=== PATIENT | male | born 1960 | race Caucasian/White ===

== ENCOUNTER 2017-01-24 11:05 | Emergency (ER) | payer OTHER ==
[~2017-01-24] VITALS: Ht 177.8 cm; Wt 110.0 kg
[~2017-01-24 11:05] MED LIST: 3-IN3MIS; LISI20 PO; METF500 PO; NORC10TA2 PO; PERI8.6T PO; PRAV40TA2 PO; RIVA10 PO; VITA20003 PO; Z.0.WALKERFRONT; Z.0.WHEELELR
[2017-01-24 11:07] VITALS: BP 211/100; PULSE 98; RESP 18; TEMP 97.9; O2SAT 97
[2017-01-24 11:32] VITALS: BP 177/110
[2017-01-24] MEDS ORDERED: KETOROLAC TROMETHAMINE 60 MG/2 ML (IM) VIAL IM ONE (12:15)
[2017-01-24] MEDS ORDERED: ULTR50TA5 PO (12:17)
--- NOTE | 2017-01-24 12:17 | PD ---
HPI Chief Complaint: Injury Time Seen by Provider: 12:15 Travel History International Travel<30 days: No Contact w/Intl Traveler<30days: No Traveled to known affect area: No History of Present Illness HPI 56-year-old male presents to the emergency department for evaluation a right bicep pain. Patient states that he was working yesterday and skipping stucco out of a bucket when he felt a pop in his right bicep and developed a large bump. Patient states he has noticed bruising today and the bump has not gone away. States it is painful with flexion of the right upper extremity. Denies any decrease in strength. Denies any other symptoms at this time. PFSH Past Medical History Gastrointestinal Disorders: Yes Hypertension: No Musculoskeletal: No Neurologic: No Respiratory: No Social History Alcohol Use: No Tobacco Use: No Substance Use: No Allergies-Medications (Allergen,Severity, Reaction): Coded Allergies: No Known Allergies (Verified , 04/11/16) Reported Meds & Prescriptions Reported Meds & Active Scripts Active Ultram (Tramadol HCl) 50 Mg Tab 50 Mg PO Q6H PRN 3-in-1 Commode (Misc. Devices) 1 Mis Mis Units Vitamin D (Cholecalciferol) 2,000 Unit Tab 2,000 Unit PO DAILY Pravastatin Sodium 40 Mg Tab 1 Tab PO HS Glucophage 500 mg (Metformin HCl) 500 Mg Tab 500 Mg PO BIDPC Virginie-Colace 8.6-50 mg (Sennosides-Docusate Sodium) 1 Tab Tab 1 Tab PO BID Prinivil 20 mg (Lisinopril) 20 Mg Tab 20 Mg PO DAILY Wheelchair Elevated Leg Rest (Z.0.wheelelr) Device 1 Unit Walker Front Wheel (Z.0.walkerfront) Device 1 Unit Xarelto 10 Mg Tab (Rivaroxaban) 10 Mg Tab 10 Mg PO DAILY [place] 10-325 mg (Hydrocodone-Acetaminophen 10-325 mg) 1 Tab 1 Tab PO Q4H PRN Review of Systems Except as stated in HPI: all other systems reviewed are Neg Physical Exam Narrative GENERAL: Well-nourished male patient, ambulatory no acute distress SKIN: Focused skin assessment warm/dry. Slight ecchymosis on the lateral aspect of the right proximal upper extremity. HEAD: Atraumatic. Normocephalic. EYES: Pupils equal and round. No scleral icterus. No injection or drainage. ENT: No nasal bleeding or discharge. Mucous membranes pink and moist. NECK: Trachea midline. No JVD. CARDIOVASCULAR: Regular rate and rhythm. No murmur appreciated. RESPIRATORY: No accessory muscle use. Clear to auscultation. Breath sounds equal bilaterally. GASTROINTESTINAL: Abdomen soft, non-tender, nondistended. Hepatic and splenic margins not palpable. MUSCULOSKELETAL: No obvious deformities. No clubbing. No cyanosis. No edema. There is able to the distal lateral aspect of the right bicep with ecchymosis lateral to it. Patient has full flexion-extension of the right elbow and full abduction and adduction of the right shoulder. Distal pulses are palpable. Cap refills within normal limits. NEUROLOGICAL: Awake and alert. No obvious cranial nerve deficits. Motor grossly within normal limits. Normal speech. PSYCHIATRIC: Appropriate mood and affect; insight and judgment normal. Data Data Last Documented VS Vital Signs Date Time Temp Pulse Resp B/P Pulse Ox O2 Delivery O2 Flow Rate FiO2 01/24/17 12:36 174/101 01/24/17 11:07 97.9 98 18 97 Orders Ketorolac Inj (Toradol Inj) (01/24/17 12:15) Ice / Cold Pack PRN (01/24/17 12:12) Splint Or Brace Apply/Monitor (01/24/17 12:12) Sling Cradle Arm (01/24/17 ) MDM Medical Decision Making Medical Screen Exam Complete: Yes Emergency Medical Condition: Yes Medical Record Reviewed: Yes Differential Diagnosis Bicep tendon rupture partial versus complete versus tear versus contusion versus muscle strain versus spasm Narrative Course 56-year-old male presents to the emergency department for evaluation of right bicep pain, bulge, and bruising. History and examination is consistent with a bicep tendon rupture. I discussed the patient with my attending physician who agrees the patient needs follow-up with an medical staff specialist. He'll be placed in a sling, treated for pain, and advised to return immediately with any acute worsening of symptoms. No further emergent workup is warranted at this time. Diagnosis Primary Impression: Biceps tendon rupture, proximal Qualified Code: S46.111A - Biceps tendon rupture, proximal, right, initial encounter Referrals: Orthopaedic Surgeon Primary Care Physician Patient Instructions: General Instructions, Repairs of the Biceps and Triceps Tendons (DC) Additional Instructions: Ice to reduce pain and swelling Sling for support Avoid lifting with the right upper extremity until cleared by medical staff specialist Seek medical staff specialist for further evaluation and care plan Return immediately with any acute worsening of symptoms Med/Other Pt SpecificInfo: Prescription(s) given Scripts Tramadol (Ultram)50 Mg Tab50 Mg PO Q6H PRN (PAIN GREATER THAN 6) #15 TAB Ref 0 Prov:Percy Jean-Baptiste MD 01/24/17 Disposition: 01 DISCHARGE HOME Condition: Stable Shadia Reeves Jan 24, 2017 12:17
[2017-01-24 12:28] VITALS: BP 174/101
[2017-01-24 12:36] VITALS: BP 174/101
== END 2017-01-24 12:36 | disposition home or self-care (01) ==
LOC: NEPD 11:05
DX: S46.111A Strain of muscle, fascia and tendon of long head of biceps, right arm, initial encounter (principal); Z87.19 Personal history of other diseases of the digestive system; X58.XXXA Exposure to other specified factors, initial encounter; Y99.0 Civilian activity done for income or pay
CPT/HCPCS: 96372; 99283; J1885

== ENCOUNTER 2017-03-09 09:49 | Inpatient (IN) | payer OTHER ==
[~2017-03-09] VITALS: Ht 177.8 cm; Wt 111.5 kg
[2017-03-09] MEDS ORDERED: MELO-1 PO (10:57)
[2017-03-09] MEDS ORDERED: HYDR-3288 PO (10:57)
[2017-03-09] MEDS ORDERED: METF500T PO (10:57)
[2017-03-09 11:06] VITALS: BP 159/102; PULSE 103; RESP 18; TEMP 98.2; O2SAT 98
[2017-03-09 11:14] LABS: HEMATOCRIT 41.9 % (39.0-51.0); MEAN CELL VOLUME 83.9 FL (80.0-100.0); MEAN CORPUSCULAR HEMOGLOBIN 28.9 PG (27.0-34.0); MEAN CORPUSCULAR HGB CONC 34.4 % (32.0-36.0); PLATELET COUNT 171 TH/MM3 (150-450); RED BLOOD COUNT 4.99 MIL/MM3 (4.50-5.90); RED CELL DISTRIBUTION WIDTH 12.5 % (11.6-17.2); REVIEW FLAG FINAL; WHITE BLOOD COUNT 9.7 TH/MM3 (4.0-11.0)
[2017-03-09] MEDS ORDERED: ceFAZolin INJ 1,000 MG VIAL ONE ×2 (11:19→14:19)
[2017-03-09] MEDS ORDERED: GENTAMICIN SULFATE 80 MG/2 ML VIAL ONE (11:19)
[2017-03-09 11:25] LABS: BLOOD, URINE NEG (NEG); COMMENT (UR) CULT NOT INDICATED; CULTURE IF INDICATED CULT NOT INDICATED; GLUCOSE,URINE 1000 mg/dL (NEG); KETONE, URINE TRACE mg/dL (NEG); MUCUS URINE FEW /lpf (OCC); NITRITE,URINE NEG (NEG); SQUAMOUS EPITHELIAL CELL URINE <1 /hpf (0-5); URINE COLOR YELLOW (YELLW/STRAW)
[2017-03-09 11:46] LABS: BICARBONATE 23.3 MEQ/L (21.0-32.0)
[2017-03-09] MEDS ORDERED: ONDANSETRON HCL 4 MG/2 ML VIAL IV PUSH ONE (12:00)
[2017-03-09] MEDS ORDERED: PROPOFOL 200 MG/20 ML AMP IV ONE (12:00)
[2017-03-09] MEDS ORDERED: PHENYLEPH/NS 1000 MCG/10 ML SYR IV ONE (12:00)
[2017-03-09] MEDS ORDERED: LACTATED RINGER'S 1000 ML INJ 1,000 ML IV ONE (12:00)
[2017-03-09] MEDS ORDERED: SODIUM CHLOR 0.9% 250 ML INJ 250 ML IV ONE (12:00)
[2017-03-09] MEDS ORDERED: SODIUM CHLORID 0.9% 500 ML INJ 500 ML IV ONE (12:00)
[2017-03-09] MEDS ORDERED: GENTAMICIN SULFATE 80 MG/2 ML VIAL IRRIGATION ONE (12:26)
[2017-03-09] MEDS ORDERED: ACETAMINOPHEN/HYDROcodone 325 MG/7.5 MG TAB PO PRN ×2 (12:30→15:00)
[2017-03-09] MEDS: LACTATED RINGER'S 1000 ML INJ 1,000 ML IV SCH ×2 (12:38→21:36)
--- NOTE | 2017-03-09 12:41 | HHI.PR ---
Objective Objective Results - Vital Signs Date Time Temp Pulse Resp B/P Pulse Ox O2 Delivery O2 Flow Rate FiO2 03/09/17 11:06 98.2 103 18 159/102 98 Result Diagram: 03/09/17 1106 03/09/17 1106 Other Results Laboratory Tests Test 03/09/17 03/09/17 11:06 11:10 White Blood Count 9.7 Red Blood Count 4.99 Hemoglobin 14.4 Hematocrit 41.9 Mean Corpuscular Volume 83.9 Mean Corpuscular Hemoglobin 28.9 Mean Corpuscular Hemoglobin 34.4 Concent Red Cell Distribution Width 12.5 Platelet Count 171 Mean Platelet Volume 7.8 Sodium Level 134 Potassium Level 4.0 Chloride Level 100 Carbon Dioxide Level 23.3 Anion Gap 11 Blood Urea Nitrogen 16 Creatinine 1.04 Estimat Glomerular Filtration 74 Rate Random Glucose 272 Calcium Level 8.6 Urine Color YELLOW Urine Turbidity CLEAR Urine pH 5.0 Urine Specific [place] 1.044 Urine Protein 30 Urine Glucose (UA) 1000 Urine Ketones TRACE Urine Occult Blood NEG Urine Nitrite NEG Urine Bilirubin NEG Urine Urobilinogen LESS THAN 2.0 Urine Leukocyte Esterase NEG Urine RBC LESS THAN 1 Urine WBC 1 Urine Squamous Epithelial <1 Cells Urine Mucus FEW Microscopic Urinalysis Comment CULT NOT INDICATED Date/Time Procedure Status Source Growth 03/09/17 10:36 Gram Stain Received Wound Shoulder Pending 03/09/17 10:36 Wound Culture Received Wound Shoulder Pending Physical Exam Physical Exam PHYSICAL EXAMINATION GENERAL: This is a well-developed, well-nourished male who appears to be in no acute distress. He is alert and awake, []. HEAD: Normocephalic without any lesion or mass noted. Facial features appear symmetric. EYES: [place], Normal eye movement, [] Icterus. [] Conj congestion. OROPHARYNGEAL: Oropharynx without erythema or edema. MOUTH/THROAT: Tongue midline []. Buccal mucosa is moist []. NECK: Supple. No nuchal rigidity or lymphadenopathy. Trachea midline without deviation. Thyroid not palpable, no bruits appreciated. CARDIAC: Regular rhythm, regular rate, S1 and S2 are heard. Murmur []; no gallops or rubs. LUNGS: Clear to auscultation bilaterally. [] wheeze, [] rhonchi or [] rale. No use of accessory muscles on inspiration or expiration. ABDOMEN: Soft, nontender, no organomegaly or masses. Bowel sounds are heard in all four quadrants. No rebound. No guarding. EXTREMITIES: [] edema. Pulses equal bilateral. [] cyanosis. NEUROLOGICAL: Patient mood and affect appropriate. Cranial nerves II through XII grossly intact. Muscle strength 5/5 in the upper and lower extremities bilaterally. Deep tendon reflexes are 2+ in the upper and lower extremities bilaterally. SKIN:Warm and moist PSYCH: Mood and affect appropriate A/P Assessment and Plan patient seen and examined Please refer to full consult for more details Right shoulder infection h/o DM non compliance with medications plan for I & D today Monitor cultures currently not on any antibiotics check HBA1C accuchecks ISS pain control discussed with patient and at bedside discussed with nursign staff discussed with Ilana Vera MD Mar 09, 2017 12:41
[2017-03-09] MEDS ORDERED: DEXTROSE 50% IN WATER 50 ML VIAL(D50) IV PRN (12:45)
[2017-03-09] MEDS ORDERED: GLUCAGON 1 MG/ML VIAL OTHER PRN (12:45)
[2017-03-09] MEDS ORDERED: METOCLOPRAMIDE HCL 10 MG/2 ML VIAL ONE (13:30)
[2017-03-09] MEDS ORDERED: FAMOTIDINE 20 MG/2 ML VIAL ONE ×2 (13:30→13:31)
[2017-03-09] MEDS ORDERED: SUGAMMADEX SODIUM 200 MG/2 ML VIAL IV PUSH ONE ×2 (13:38)
[2017-03-09] MEDS ORDERED: ACETAMINOPHEN 1000 MG/100 ML VIAL IV ONE (14:09)
[2017-03-09] MEDS ORDERED: VANCOMYCIN HCL 1000 MG VIAL ONE (14:19)
[2017-03-09] MEDS ORDERED: fentaNYL CITRATE 250 MCG/5 ML AMP ONE (14:51)
[2017-03-09] MEDS ORDERED: ZOLPIDEM TARTRATE 5 MG TAB PO PRN (15:00)
[2017-03-09] MEDS ORDERED: SODIUM CHLORIDE 0.9% FLUSH 5 ML FLUSH IVF PRN (15:00)
[2017-03-09] MEDS ORDERED: Post-op Orders (for Pharmacy) MISC XX ONE (15:00)
[2017-03-09] MEDS: SODIUM CHLORIDE 0.9% FLUSH 5 ML FLUSH IVF SCH ×2 (15:00→21:00)
[2017-03-09] MEDS ORDERED: ALUMINUM/MAGNESIUM/SIMETH 30 ML CUP PO PRN (15:00)
[2017-03-09] MEDS ORDERED: MORPHINE SULFATE 8 MG/ML INJ IM PRN (15:00)
--- NOTE | 2017-03-09 15:10 | HHI.PR ---
Immediate Post Op Note Procedure Date: Mar 09, 2017 Pre Op Diagnosis: R Shoulder Abscess Post Op Diagnosis: Same Surgeon: Cholo Thorpe MD Environmental Sampling Technician(s): Staff Procedure: R Shoulder abscess I+D Complications: None Specimen(s) removed: GS.A+A C/S; Fungal Smear +culture Estimated blood loss: 75 cc Anesthesia: General Drains: Hemovac Patient to: PACU Patient Condition: Good Implant/Devices: SEE IMPLANT LOG (if applicable) Date/Time of Procedure: SEE SURGICAL CARE RECORD Cholo Thorpe MD Mar 09, 2017 15:10
[2017-03-09] MEDS ORDERED: DO NOT ADM ANY ANTICOAGULANT DRUGS PRN (15:22)
[2017-03-09] MEDS ORDERED: *LABETALOL HCL 100 MG/20 ML VIAL PERIprocedural Use ONLY ONE (15:34)
[2017-03-09 15:53] LABS: HEMOGLOBIN A1a 0.8 %; HEMOGLOBIN Ao 78.5 %; HEMOGLOBIN F 1.4 %; HEMOGLOBIN LA1C 3.3 %
[2017-03-09] MEDS: INSULIN NovoLIN REGULAR SUPPLEMENTAL SCALE SQ SCH ×2 (16:10→21:38)
[2017-03-09] MEDS: ACETAMINOPHEN/HYDROcodone 325 MG/7.5 MG TAB PO PRN ×2 (17:06→21:39)
[2017-03-09 17:26] VITALS: BP 170/102; PULSE 94; RESP 20; TEMP 98.4; O2SAT 98
[2017-03-09 17:45] VITALS: O2SAT 98
[2017-03-09] MEDS: metFORMIN HCL 500 MG TAB PO SCH (17:59)
[2017-03-09] MEDS ORDERED: LABETALOL HCL 100 MG/20 ML VIAL IV PUSH PRN (19:00)
[2017-03-09 20:00] VITALS: BP 154/92; PULSE 95; RESP 17; TEMP 98.7; O2SAT 98
--- NOTE | 2017-03-09 20:34 | MB ---
cc: RUDY ANDERSON DATE OF CONSULTATION 03/09/17 DATE OF 1960 REASON FOR CONSULTATION Medical management. HISTORY OF PRESENT ILLNESS This is a pleasant 56-year-old white male who sustained a work injury, according to the record, on 01/23/2017. 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 The patient had surgical procedure for acromioplasty, excision of coracoid acromial ligament and resection of the acromioclavicular joint. The patient had an uneventful surgical process, went home, states that he did everything he possibly related to take care of the surgery but noted increased redness and swelling in his postoperative phase at home. He also states that the incision started opening at the top and began having drainage along with erythema and swelling. The patient was placed on p.o. antibiotics, but as soon as the antibiotics were complete he noted increased pain, drainage and swelling in the joint. He was seen in office today of Dr. Thorpe and was sent over to the hospital for an incision and drainage of the right shoulder abscess. The patient is currently in his room postop eating some supper. He is alert and oriented and a fairly good historian. His is present. The patient is responding effectively to pain management. PAST MEDICAL HISTORY 1. Gout 2. Recent to medications for hypertension 3. Diabetes mellitus type 2. PAST SURGICAL HISTORY Right knee scope in the distant past. ALLERGIES None known MEDICATIONS Reconciled 1. Meloxicam 2. [place] 3. Metformin SOCIAL HISTORY The patient is , lives with his . Quit smoking approximately 30 years ago. Does drink a social beer almost daily. Denies any illicit drug use. REVIEW OF SYSTEMS A 12-point review was obtained. Positives noted was the patient is status post right shoulder incision and drainage. His dressing is bulky, clean, dry and intact and he does have a drain that is draining clear, red, serous fluid. He recently has had swelling, has been on p.o. antibiotics, had drainage from the incision site. Otherwise, his systems are negative unremarkable. He has had a bowel movement 24 hours ago. PHYSICAL EXAMINATION VITAL SIGNS: Temperature is 98.8, pulse 90, respirations 14-20, blood pressure 164/94 and 170/102, O2 at 2 liters per nasal cannula O2 sat 98. GENERAL: This is a well-nourished white male who looks to be his stated age resting in the bed, alert, oriented and a fairly good historian. His is currently by his side and is supported of his care. SKIN: [place], warm and dry. HEENT: Atraumatic, normocephalic. PERRLA at two. Mucous membranes are moist and pink. NECK: Supple. CARDIOVASCULAR: S1-S2, rhythm is regular. He has a soft systolic murmur at the left sternal border grade 2/6. He has no edema and his pulses are intact. RESPIRATORY: Essentially clear anteriorly and posteriorly with no wheezes, rales or rhonchi. ABDOMEN: Round, soft, nontender, nondistended. Active bowel sounds. MUSCULOSKELETAL: He is moving his lower extremities with purpose. His left arm has normal strength. He is postop with his right shoulder and mobility is purposefully limited at this time. NEUROLOGIC: He is alert, oriented, tongue is midline. PSYCHIATRIC: Mood and affect are appropriate. LABORATORY DATA WBC count 7 9.7, hemoglobin 14.4, hematocrit 41.9, platelet count 171. Chemistry - sodium is 134, potassium four, chloride 100, carbon dioxide 23.3. Anion gap 11, BUN 16, creatinine 1.04, random glucose 272, hemoglobin A1c 9.2, calcium 8.6. Urine is yellow clear, pH is 5. Specific gravity 1.044, protein 30, glucose is 1000, trace ketones, negative for occult blood, nitrates, bilirubin and leukocyte esterase. IMAGING STUDIES None. ASSESSMENT AND PLAN 1. Recent right shoulder acromioplasty and resection of the acromioclavicular joint. The patient is now status post I&D of the right shoulder. 2. Diabetes type 2 uncontrolled recent diagnosis 3. Hypertension, uncontrolled. recent diagnosis 4. ETOH dependence 5. Hyponatremia, mild. PLAN Admit. We will monitor his O2 level, his fever, any abnormal blood pressures. He currently has borderline hypertension. We will order p.r.n. medications to control with a systolic less than 180 and a diastolic less than 100. He has had infectious disease consulted for antibiotic therapy and their expert opinion. Accu-Cheks are a.c. and at bedtime with sliding scale. The patient had his medications reconciled including bowel regimen, IV fluids for gentle hydration. He is on IV antibiotics cephazolin q6. We will use IV labetalol to stabilize pressure as mentioned. Vital signs will be Q4. His postop care and pain management will be per ortho. His diet is 2200 calorie ADA diet. Thank you very much for the consultation. We will follow. Ilana Anderson MD Dictated by RASHAWN Blankenship/ /6:47 PM /8:07 PM
--- NOTE | 2017-03-09 22:52 | MP ---
cc: PHILIPP BRIZUELA MD DATE OF SURGERY 03/09/17 PREOPERATIVE DIAGNOSIS Right shoulder abscess. POSTOPERATIVE DIAGNOSIS Right shoulder abscess PROCEDURE Right shoulder incision and drainage of abscess, irrigation and debridement. SURGEON Keon Brizuela MD ASSESSMENT Staff COMPLICATIONS None ANESTHESIA General SPECIMEN Three separate specimens were taken. They were sent for Gram stain aerobic, anaerobic cultures and sensitivity; fungal smear and cultures. DRAINS One. CONDITION Stable PLAN OF ACTIVITY Per orders. PROCEDURE IN DETAIL The patient brought into the operating room, had satisfactory general endotracheal anesthesia by Dr. Bassem Kincaid, Department of Anesthesia. The right shoulder, thorax, upper extremity was prepped and draped in usual sterile manner. Elliptical incision was made over the anterior wound. Purulent material was evacuated from the shoulder. The patient's repair with #2 Tycron suture was removed as was the repair of the deltoid to the acromion anteriorly. This was in an attempt to eradicate the infection with that suture material. All nonviable tissue was sharply removed. The shoulder was then irrigated with water pick irrigation system with 6000 mL of sterile saline antibiotic solution. Prior to the irrigation and debridement, three separate cultures were taken. These were sent for Gram stain, aerobic, anaerobic cultures and sensitivity, fungal smear and culture. The wound was closed over a 1/8" Hemovac drain. It was closed in layers using #1 PDS sutures. Skin was approximated with a #1 Prolene and 2-0 nylon. Sterile dressings were applied. The patient tolerated the procedure well and arrived in recovery room in stable and satisfactory condition. MD CODY Sargent/ /3:15 PM /10:35 PM
[2017-03-10] VITALS (7 sets, daily range): BP systolic 131–173; BP diastolic 83–92; PULSE 82–97; RESP 17–19; TEMP 98–99; O2SAT 92–99
[2017-03-10] MEDS: INSULIN NovoLIN REGULAR SUPPLEMENTAL SCALE SQ SCH ×2 (05:30→11:00)
[2017-03-10] MEDS: ACETAMINOPHEN/HYDROcodone 325 MG/7.5 MG TAB PO PRN ×5 (05:43→23:05)
--- NOTE | 2017-03-10 07:09 | PD.ORT.PN ---
Subjective Subjective Remarks Christopher is resting comfortably. He does complain of right shoulder pain with motion. He denies fevers or chills. Objective Vitals Vital Signs Date Time Temp Pulse Resp B/P Pulse Ox O2 Delivery O2 Flow Rate FiO2 03/10/17 04:00 98.7 92 17 163/92 97 03/10/17 00:00 98.0 82 17 131/86 98 03/09/17 20:00 98.7 95 17 154/92 98 03/09/17 18:00 18 03/09/17 17:45 98 Nasal Cannula 2.00 03/09/17 17:26 98.4 94 20 170/102 98 03/09/17 16:15 98.8 90 14 164/94 97 Nasal Cannula 2 03/09/17 16:00 94 14 165/95 98 Nasal Cannula 2.5 03/09/17 15:45 93 12 179/96 97 Nasal Cannula 2.5 03/09/17 15:30 99 14 182/90 96 Nasal Cannula 2.5 03/09/17 15:15 104 14 157/88 89 Nasal Cannula 2.5 03/09/17 15:09 99.2 109 14 158/88 90 Room Air 03/09/17 11:06 98.2 103 18 159/102 98 I/O 03/09/17 03/09/17 03/09/17 03/10/17 03/10/17 03/10/17 07:00 15:00 23:00 07:00 15:00 23:00 Intake Total 1340 ml 240 ml Output Total 1075 ml 1000 ml Balance 265 ml -760 ml Intake Oral 240 ml 240 ml Other 1100 ml Output Urine Total 1000 ml 1000 ml Estimated Blood Loss 75 ml Result Diagram: 03/09/17 1106 03/09/17 1106 Objective Remarks Patient is awake and alert. Examination of right shoulder reveals clean dry dressing intact. No pain with elbow, wrist, or finger motion. Drain is in place. Drain has some serosanguineous drainage present Assessment & Plan Assessment and Plan Postoperative day #1 status post right shoulder irrigation and debridement Cultures no growth today Continue drain Presley Nelson MD Mar 10, 2017 07:09
[2017-03-10] MEDS: LACTATED RINGER'S 1000 ML INJ 1,000 ML IV SCH ×2 (08:37→17:14)
[2017-03-10] MEDS: SODIUM CHLORIDE 0.9% FLUSH 5 ML FLUSH IVF SCH ×2 (08:37→21:00)
[2017-03-10] MEDS: metFORMIN HCL 500 MG TAB PO SCH ×2 (08:37→17:13)
--- NOTE | 2017-03-10 10:11 | HHI.PR ---
Subjective Remarks Awake alert in room Patient's resting in bed but plans to get up in chair when IV pole available Right shoulder dressing clean dry and intact Afebrile (Lise Mcneil) Objective Objective Results - Vital Signs Date Time Temp Pulse Resp B/P Pulse Ox O2 Delivery O2 Flow Rate FiO2 03/10/17 08:00 98.6 92 18 173/86 96 03/10/17 04:00 98.7 92 17 163/92 97 03/10/17 00:00 98.0 82 17 131/86 98 03/09/17 20:00 98.7 95 17 154/92 98 03/09/17 18:00 18 03/09/17 17:45 98 Nasal Cannula 2.00 03/09/17 17:26 98.4 94 20 170/102 98 03/09/17 16:15 98.8 90 14 164/94 97 Nasal Cannula 2 03/09/17 16:00 94 14 165/95 98 Nasal Cannula 2.5 03/09/17 15:45 93 12 179/96 97 Nasal Cannula 2.5 03/09/17 15:30 99 14 182/90 96 Nasal Cannula 2.5 03/09/17 15:15 104 14 157/88 89 Nasal Cannula 2.5 03/09/17 15:09 99.2 109 14 158/88 90 Room Air 03/09/17 11:06 98.2 103 18 159/102 98 I/O 03/09/17 03/09/17 03/09/17 03/10/17 03/10/17 03/10/17 07:00 15:00 23:00 07:00 15:00 23:00 Intake Total 1340 ml 240 ml Output Total 1075 ml 1000 ml Balance 265 ml -760 ml Intake Oral 240 ml 240 ml Other 1100 ml Output Urine Total 1000 ml 1000 ml Estimated Blood Loss 75 ml (Lise Mcneil) Result Diagram: 03/09/17 1106 03/09/17 1106 ROS General: Weakness (generalized patient is day 1 postop right shoulder surgery) , Other (10 point ROS done positives noted) GI: BM (laxative ordered, bowel regimen discussed patient's on day 2) Neuro/MS: Other (right shoulder pain postop day 1) (Lise Mcneil) Physical Exam Physical Exam PHYSICAL EXAMINATION GENERAL: This is a mildly obese male who appears to be in no acute distress. He is alert and awake, no anxiety noted HEAD: Normocephalic atraumatic OROPHARYNGEAL: Oropharynx clear. NECK: Supple. Trachea midline without deviation. CARDIAC: Regular rhythm, regular rate, S1 and S2 are heard. LUNGS: Clear to auscultation bilaterally. ABDOMEN: Soft,taut, nontender, Bowel sounds active EXTREMITIES: Mild right shoulder edema. Pulse intact NEUROLOGICAL: Patient mood and affect appropriate. SKIN:Warm and moist (Lise Mcneil) A/P Assessment and Plan 1. Recent right shoulder acromioplasty and resection of the acromioclavicular joint. The patient is now status post I&D of the right shoulder. 2. Diabetes type 2 uncontrolled recent diagnosis 3. Hypertension, uncontrolled. recent diagnosis 4. ETOH dependence 5. Hyponatremia, mild. PLAN Vital signs reviewed, normal trends, monitor blood pressure for any when necessary needs. Patient's afebrile Labs reviewed, will recheck BMP and CBC in the morning Status post right shoulder acromioplasty, pain management and activity per Ortho , draining to stay in today Patient is getting up in chair this a.m. Bowel regimen, milk of magnesia ordered and patient has stool softeners daily Pain management, postop care per orthopedic Diabetes type 2, Accu-Cheks before meals and at bedtime with sliding scale, taking by mouth meds Hypertension, by mouth meds medical management, IV labetalol if needed for systolic 180 or greater, diastolic 100 or greater EtOH, history, no acute anxiety or restlessness noted, monitor for any acute needs Discussed with patient Discussed with nurse Discussed with Dr. carroll, seen on his behalf Discharge planning possibly Sunday to reevaluate per his orthopedic surgeon ( Lise Mcneil) Assessment and Plan pt is seen & examined d.w PT & sig other at bedside wound c.s +ve MRSA IV Vanco/ID consult analgesic wound care diabetic diet inc dose Metformin change insulin SSI to medium dose add Lisinopril for BP d/w lise martinez w above will f/u (Tracey Carroll MD) Lise Mcneil Mar 10, 2017 10:11 Tracey Carroll MD Mar 10, 2017 12:43
[2017-03-10] MEDS ORDERED: Vancomycin Consult Pharmacy 1 EA OTHER SCH (10:45)
[2017-03-10] MEDS ORDERED: GLUCAGON 1 MG/ML VIAL OTHER PRN (12:15)
[2017-03-10] MEDS ORDERED: DEXTROSE 50% IN WATER 50 ML VIAL(D50) IV PRN (12:15)
[2017-03-10] MEDS: VANCOMYCIN 1,500 MG/NS 500 ML IV SCH ×2 (12:23)
[2017-03-10] MEDS: MAGNESIUM HYDROXIDE SUSP 30 ML CUP PO PRN (14:04)
[2017-03-10] MEDS: cloNIDine HCL 0.2 MG TAB PO SCH ×2 (14:04→21:52)
--- NOTE | 2017-03-10 15:34 | MB ---
cc: MAHAMED SINGH MD DATE OF CONSULTATION 03/10/[address] Cholo Thorpe REASON FOR CONSULTATION Infection of the right shoulder. HISTORY OF PRESENT ILLNESS This is a 56-year-old white male who underwent surgery on his right shoulder on 02/08/17 because of tendon rupture. The patient sustained an injury while working at the end of December and he felt a pop in his right bicep and subsequently developed a large bump and severe pain. The patient had the surgery on 02/08. Approximately three weeks later he developed swelling and some redness and he was put on oral antibiotics for 10 days which he completed 5 days ago. The patient developed severe pain and started draining from the wound 3 days ago and therefore he has made an appointment to follow up with orthopedic physician and subsequently was admitted for further surgery. He was doing rehab therapy after surgery. He states that there was fair amount of drainage that appeared purulent at the surgical site of the right shoulder. He states that he had mild fever and at one point the pain was very bad in the right shoulder and was radiating up the right side of his neck but only lasted for a short time at the neck region. He has not had that transfer of pain of the right neck since. He did not notice any redness at the right neck region at all. The patient underwent surgery on March 09 consisting of irrigation and debridement of the right shoulder and drainage of abscess. Culture was taken and the results are not yet available. The patient is afebrile. He was noted to have elevation in the blood glucose and also has hypertension as well with elevation in his blood pressure. Currently, he is awake and alert and is in no acute distress. He denies nausea or vomiting and has no other significant symptoms except for pain in the right shoulder. He has a drainage catheter exiting the right shoulder wound which has serous drainage. PAST MEDICAL HISTORY Hypertension. The patient newly diagnosed with diabetes. ALLERGIES NO KNOWN DRUG ALLERGIES. MEDICATIONS 1. Glucophage. 2. Sliding scale insulin. 3. [place] 7.5 p.r.n. SOCIAL HISTORY The patient is . 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 No tobacco use. No alcohol use. No illicit drugs. FAMILY HISTORY The patient's mother had diabetes. REVIEW OF SYSTEMS GENERAL: No fever. The patient reported slight chills. HEAD/EARS/EYES/NOSE/THROAT: No visual blurring or diplopia. No difficulty swallowing or soreness of the throat. No neck pain or neck swelling. CARDIOVASCULAR: No palpitation or chest pain. RESPIRATORY: No cough or shortness of breath. GASTROINTESTINAL: No nausea, vomiting, abdominal pain or diarrhea. GENITOURINARY: No urgency, frequency or dysuria. HEMATOPOIETIC: No easy bruising or bleeding. ENDOCRINE: No polyuria, polydipsia. MUSCULOSKELETAL: No joint aches. The patient has pain in the right shoulder. NEUROLOGIC: No problems with coordination or dizziness. INTEGUMENTARY: No skin rash or itching. PSYCHIATRIC: No problems with mood disorder or depression. PHYSICAL EXAMINATION GENERAL: This is a well-developed obese male in no acute distress. He is awake and alert and oriented. VITAL SIGNS: Include temperature of 98.6, BP 173/86, heart rate 92, respirations 18. HEENT: Head is atraumatic. Extraocular movements grossly intact, pupils reactive to light. No icterus. Oropharynx no visible lesions. No thrush. NECK: Supple without adenopathy. LUNGS: Clear to auscultation. HEART: Regular rate and rhythm. No murmurs. No rubs. No gallops. ABDOMEN: Bowel sounds present, soft, nontender. RECTAL: Not performed. EXTREMITIES: The right shoulder has a drainage catheter exiting the wound bed postop. There is serous drainage in the catheter. The rest of the extremities have no clubbing, cyanosis or edema. SKIN: No rash. NEUROLOGIC: No gross focal findings. PSYCHIATRIC: The patient is calm and cooperative. LABORATORY DATA WBC 9.7, platelet count 171, creatinine 1.04, BUN 16, sodium 134. Wound culture pending. IMPRESSION 1. Wound infection postop. Patient status post drainage of abscess at the right shoulder. 2. Patient status post repair of right shoulder ruptured tendon, recent. RECOMMENDATIONS 1. Monitor wound culture. 2. Treat with intravenous vancomycin while awaiting for the results of the culture. The patient failed to respond to oral outpatient antibiotic and may very well have resistant staph bacteria. 3. Monitor clinical response. Thank you for this consultation. The patient's progress will be monitored and further recommendations will be given and adjustment to antibiotics will be made on followup. Mahamed Singh MD FD/SILVER /10:30 AM /3:10 PM MTDMary
[2017-03-10] MEDS: INSULIN ASPART SUPPLEMENTAL SCALE SQ SCH ×2 (17:15→21:56)
[2017-03-10] MEDS: DOCUSATE SODIUM 100 MG CAP PO SCH (21:51)
[2017-03-11] VITALS: BP 140/83; PULSE 89; RESP 18; TEMP 99.7; O2SAT 95
[2017-03-11] MEDS: VANCOMYCIN 1,500 MG/NS 500 ML IV SCH ×4 (00:17→12:24)
[2017-03-11] MEDS: LACTATED RINGER'S 1000 ML INJ 1,000 ML IV SCH ×2 (04:00→12:24)
[2017-03-11] MEDS: cloNIDine HCL 0.2 MG TAB PO SCH ×3 (04:39→22:00)
[2017-03-11] MEDS: ACETAMINOPHEN/HYDROcodone 325 MG/7.5 MG TAB PO PRN ×5 (04:39→21:11)
[2017-03-11 05:16] LABS: HEMATOCRIT 37.3 % (39.0-51.0); MEAN CELL VOLUME 83.8 FL (80.0-100.0); MEAN CORPUSCULAR HEMOGLOBIN 29.4 PG (27.0-34.0); MEAN CORPUSCULAR HGB CONC 35.1 % (32.0-36.0); PLATELET COUNT 220 TH/MM3 (150-450); RED BLOOD COUNT 4.45 MIL/MM3 (4.50-5.90); RED CELL DISTRIBUTION WIDTH 12.4 % (11.6-17.2); REVIEW FLAG FINAL; WHITE BLOOD COUNT 9.9 TH/MM3 (4.0-11.0)
[2017-03-11 05:38] LABS: BICARBONATE 24.8 MEQ/L (21.0-32.0)
[2017-03-11] MEDS: INSULIN ASPART SUPPLEMENTAL SCALE SQ SCH ×4 (06:13→21:14)
--- NOTE | 2017-03-11 07:36 | PD.ORT.PN ---
Subjective Subjective Remarks POD 2 s/p I&D right shoulder doing well. states has had pain overnight. worked with therapy yesterday. reports that dressing had to be changes twice due to drainage. Objective Vitals Vital Signs Date Time Temp Pulse Resp B/P Pulse Ox O2 Delivery O2 Flow Rate FiO2 03/11/17 00:00 99.7 89 18 140/83 95 03/10/17 20:00 99.0 97 18 147/90 92 03/10/17 16:00 98.4 90 19 135/83 96 03/10/17 12:00 98.4 95 19 151/87 96 03/10/17 10:37 99 21 03/10/17 08:00 98.6 92 18 173/86 96 I/O 03/10/17 03/10/17 03/10/17 03/11/17 03/11/17 03/11/17 07:00 15:00 23:00 07:00 15:00 23:00 Intake Total 240 ml 1505 ml 360 ml 500 ml Output Total 1000 ml 400 ml 400 ml Balance -760 ml 1105 ml -40 ml 500 ml Intake Oral 240 ml 720 ml 360 ml IV Total 785 ml 500 ml Output Urine Total 1000 ml 400 ml 400 ml # Bowel Movements 0 0 Result Diagram: 03/11/17 0428 03/11/17 0428 Objective Remarks Patient is awake and alert. Examination of right shoulder reveals clean dry dressing intact. No pain with elbow, wrist, or finger motion. Drain is in place. Drain has some serosanguineous drainage present Assessment & Plan Assessment and Plan 1) POD #2 s/p right shoulder irrigation and debridement Cultures - MRSA Continue drain continue PT plan for DC of drain possibly tomorrow. Dr Emmanuel back tomorrow to make assessment Gilbert Alcocer Mar 11, 2017 07:36
[2017-03-11 08:00] VITALS: BP 149/92; PULSE 86; RESP 20; TEMP 98.7; O2SAT 96
[2017-03-11] MEDS: DOCUSATE SODIUM 100 MG CAP PO SCH ×2 (08:54→21:10)
[2017-03-11] MEDS: SODIUM CHLORIDE 0.9% FLUSH 5 ML FLUSH IVF SCH ×2 (08:54→21:00)
[2017-03-11] MEDS: metFORMIN HCL 500 MG TAB PO SCH ×2 (08:55→17:01)
[2017-03-11] MEDS ORDERED: LISINOPRIL 5 MG TAB PO SCH (09:00)
[2017-03-11] MEDS: MAGNESIUM HYDROXIDE SUSP 30 ML CUP PO PRN (09:08)
--- NOTE | 2017-03-11 10:13 | EKG ---
Date Performed: 03/09/2017 Time Performed: 12:10:54 PTAGE: 56 years EKG: Sinus rhythm POSSIBLE LEFT ATRIAL ENLARGEMENT BORDERLINE ECG PREVIOUS TRACING : 04/11/2016 15.59 DOCTOR: Joshua Lynn Interpretating Date/Time 03/11/2017 09:55:31
[2017-03-11 12:00] VITALS: BP 153/100; PULSE 88; RESP 19; TEMP 98.1; O2SAT 96
[2017-03-11] MEDS: ONDANSETRON HCL 4 MG/2 ML VIAL IVP PRN (14:25)
--- NOTE | 2017-03-11 14:39 | HHI.PR ---
Subjective History of Present Illness c/o nausea , new BP med is making me sick shoulder pain is in control/pain meds are helping No N/V No fever or chills No CP or SOB appetite is ok No BM yet offers no other c/o is at bedside Vitals/Results Intake & Output 03/10/17 03/10/17 03/11/17 15:00 23:00 07:00 Intake Total 1505 ml 360 ml 500 ml Output Total 400 ml 400 ml Balance 1105 ml -40 ml 500 ml Intake Oral 720 ml 360 ml IV Total 785 ml 500 ml Output Urine Total 400 ml 400 ml # Bowel Movements 0 0 Vital Signs Vital Signs Date Time Temp Pulse Resp B/P Pulse Ox O2 Delivery O2 Flow Rate FiO2 03/11/17 12:00 98.1 88 19 153/100 96 03/11/17 08:00 98.7 86 20 149/92 96 03/11/17 00:00 99.7 89 18 140/83 95 03/10/17 20:00 99.0 97 18 147/90 92 03/10/17 16:00 98.4 90 19 135/83 96 CBC/BMP: 03/11/17 0428 03/11/17 0428 Lab Results Laboratory Tests Test 03/11/17 04:28 White Blood Count 9.9 TH/MM3 Red Blood Count 4.45 MIL/MM3 Hemoglobin 13.1 GM/DL Hematocrit 37.3 % Mean Corpuscular Volume 83.8 FL Mean Corpuscular Hemoglobin 29.4 PG Mean Corpuscular Hemoglobin 35.1 % Concent Red Cell Distribution Width 12.4 % Platelet Count 220 TH/MM3 Mean Platelet Volume 8.2 FL Sodium Level 134 MEQ/L Potassium Level 4.0 MEQ/L Chloride Level 98 MEQ/L Carbon Dioxide Level 24.8 MEQ/L Anion Gap 11 MEQ/L Blood Urea Nitrogen 20 MG/DL Creatinine 0.99 MG/DL Estimat Glomerular Filtration 79 ML/MIN Rate Random Glucose 194 MG/DL Calcium Level 8.5 MG/DL Physical Exam General General Appearance: No Acute Distress, Comfortable, Obese Eyes Eye Exam: Pupils Equal, Sclera White, Extraocular Movement Intact Ears & Nose Ears & Nose Exam: Nasal Mucosa [place] Throat Throat Exam: Oral Mucosa [place] & Moist Neck Neck Exam: Neck Supple, Trachea Midline Pulmonary Resp Exam: Clear Bilaterally, No Distress Cardiology CV Exam: Regular, Normal Sinus Rhythm Gastrointestinal/Abdomen GI Exam: Soft, Non-Tender, Bowel Sounds Present Musculoskeletal MS Remarks R shoulder dressing intact Integumentary Skin Exam: Warm, Dry Extremeties Extremities Exam: No Edema, Pedal Pulses Palpable Neurologic Neuro Exam: Alert, Awake, Oriented, Speech Clear, Moving All Extremities PUD Prophylasis PUD Prophylaxis: Protonix Assessment/Plan Assessment/Plan ASSESSMENT . R shoulder surgical wound infection w abscess status post I&D of the right shoulder./MRSA . Recent right shoulder acromioplasty and resection of the acromioclavicular joint. . Diabetes type 2 uncontrolled recent diagnosis . Hypertension, uncontrolled. recent diagnosis . ETOH dependence . Hyponatremia, mild. , nausea . Obesity . PLAN Post op care per ortho analgesic wound care IV Vanco , f/u vanco trough BP control , d/c Lisinopril d/t nausea start Diovan , titrate to Keep BP < 150 cont clonidine for now diabetic diet metformin bid /add glipizide accu checks qac & qhs w SSI ] pepcid d/w PT & will f/u Tracey Carroll MD Mar 11, 2017 14:39
[2017-03-11] MEDS ORDERED: VALSARTAN 40 MG TAB PO ONE (15:30)
[2017-03-11 16:00] VITALS: BP 120/80; PULSE 81; RESP 18; TEMP 98.4; O2SAT 96
--- NOTE | 2017-03-11 16:20 | HHI.IDPN ---
Note Infectious Disease Note Patient says he feels okay except for pain at the r. shoulder. Afebrile. Wound culture has MRSA. PAST MEDICAL HISTORY Hypertension. The patient newly diagnosed with diabetes. ALLERGIES NO KNOWN DRUG ALLERGIES. ANTIBIOTICS: Vancomycin. OBJECTIVE: Vital Signs Date Time Temp Pulse Resp B/P Pulse Ox O2 Delivery O2 Flow Rate FiO2 03/11/17 12:00 98.1 88 19 153/100 96 03/11/17 08:00 98.7 86 20 149/92 96 03/11/17 00:00 99.7 89 18 140/83 95 03/10/17 20:00 99.0 97 18 147/90 92 03/10/17 03/10/17 03/11/17 15:00 23:00 07:00 Intake Total 1505 ml 360 ml 500 ml Output Total 400 ml 400 ml Balance 1105 ml -40 ml 500 ml Intake Oral 720 ml 360 ml IV Total 785 ml 500 ml Output Urine Total 400 ml 400 ml # Bowel Movements 0 0 PHYSICAL EXAMINATION GENERAL: No acute distress. He is awake and alert and oriented. HEENT: No icterus. Oropharynx no visible lesions. No thrush. NECK: Supple without adenopathy. LUNGS: Clear to auscultation. HEART: Regular rate and rhythm. No murmurs. No rubs. No gallops. ABDOMEN: Bowel sounds present, soft, nontender. EXTREMITIES: The right shoulder has a drainage catheter exiting the wound bed postop. Drainage of pus at the incision. Decreased range of motion at the r. shoulder. SKIN: No rash. NEUROLOGIC: No gross focal findings. PSYCHIATRIC: The patient is calm and cooperative. IMPRESSION 1. Wound infection postop. MRSA. Patient status post drainage of abscess at the right shoulder. 2. Patient status post repair of right shoulder ruptured tendon, recent. RECOMMENDATIONS 1. Continue vancomycin. May need further debridement. 2. Plan on PIC line and IV Vanco x 4 weeks. Garcia Haynes MD Mar 11, 2017 16:20
[2017-03-11 20:00] VITALS: BP 116/70; PULSE 82; RESP 18; TEMP 98.5; O2SAT 95
[2017-03-12] VITALS: BP 121/72; PULSE 80; RESP 18; TEMP 98.5; O2SAT 96
[2017-03-12] MEDS: VANCOMYCIN 1,500 MG/NS 500 ML IV SCH ×4 (00:19→12:05)
[2017-03-12] MEDS: ACETAMINOPHEN/HYDROcodone 325 MG/7.5 MG TAB PO PRN ×6 (00:20→23:28)
[2017-03-12] MEDS: cloNIDine HCL 0.2 MG TAB PO SCH (06:23)
[2017-03-12] MEDS: INSULIN ASPART SUPPLEMENTAL SCALE SQ SCH ×4 (06:30→21:50)
[2017-03-12 08:00] VITALS: BP 144/75; PULSE 82; RESP 17; TEMP 98.8; O2SAT 96
[2017-03-12] MEDS: DOCUSATE SODIUM 100 MG CAP PO SCH ×2 (08:52→21:47)
[2017-03-12] MEDS: glipiZIDE 5 MG TAB PO SCH (08:52)
[2017-03-12] MEDS: metFORMIN HCL 500 MG TAB PO SCH ×2 (08:52→17:45)
[2017-03-12] MEDS: SODIUM CHLORIDE 0.9% FLUSH 5 ML FLUSH IVF SCH ×2 (08:56→21:00)
[2017-03-12] MEDS ORDERED: VALSARTAN 40 MG TAB PO SCH (09:00)
[2017-03-12] MEDS ORDERED: LISINOPRIL 10 MG TAB PO SCH (09:00)
--- NOTE | 2017-03-12 10:19 | HHI.PR ---
Subjective Subjective Remarks sitting up in chair "I feel great" had a BM has been walking around unit with no fever no cp no sob BP improved Review of Systems Constitutional Constitutional Remarks 12 point ROS completed, negative except as noted above Vitals/Results Intake & Output 03/11/17 03/11/17 03/12/17 15:00 23:00 07:00 Intake Total 1480 ml 480 ml 980 ml Output Total 1000 ml Balance 1480 ml 480 ml -20 ml Intake Oral 960 ml 480 ml 480 ml IV Total 520 ml 500 ml Output Urine Total 1000 ml # Voids 4 2 # Bowel Movements 0 0 0 Vital Signs Vital Signs Date Time Temp Pulse Resp B/P Pulse Ox O2 Delivery O2 Flow Rate FiO2 03/12/17 08:00 98.8 82 17 144/75 96 03/12/17 07:24 18 03/12/17 00:00 98.5 80 18 121/72 96 03/11/17 20:00 98.5 82 18 116/70 95 03/11/17 16:00 98.4 81 18 120/80 96 03/11/17 12:00 98.1 88 19 153/100 96 CBC/BMP: 03/11/17 0428 03/11/17 0428 Physical Exam General General Appearance: Well Developed, No Acute Distress, Comfortable, Obese Eyes Eye Exam: Pupils Equal, Pupils Reactive, Sclera White, Extraocular Movement Intact Ears & Nose Ears & Nose Exam: Nasal Mucosa [place] Throat Throat Exam: Oral Mucosa [place] & Moist Neck Neck Exam: Neck Supple, Trachea Midline Pulmonary Resp Exam: Clear Bilaterally, No Distress Cardiology CV Exam: Regular, Normal Sinus Rhythm Gastrointestinal/Abdomen GI Exam: Soft, Non-Tender, Bowel Sounds Present, Non-Distended Musculoskeletal MS Remarks right shoulder dressing D/I Hemovac drain Integumentary Skin Exam: Warm, Dry Extremeties Extremities Exam: No Edema, Pedal Pulses Palpable Neurologic Neuro Exam: Alert, Awake, Oriented, Speech Clear, Moving All Extremities, No Focal Deficits Psychiatric Psych Exam: Appropriate Responses VTE Prophylaxis VTE Prophylaxis Device: SCDs PUD Prophylasis PUD Prophylaxis: Protonix Assessment/Plan Assessment/Plan ASSESSMENT . R shoulder surgical wound infection w abscess status post I&D of the right shoulder./MRSA . Recent right shoulder acromioplasty and resection of the acromioclavicular joint. . Diabetes type 2 uncontrolled recent diagnosis . Hypertension, uncontrolled. recent diagnosis . ETOH dependence . Hyponatremia, mild. , nausea . Obesity . PLAN Post op care per ortho analgesic PRN wound care, hemovac drain in place cultures + MRSA continue with IV Vanco , f/u vanco trough appreciate ID input-recommends to continue vancomycin. May need further debridement and Plan on PICC line and IV Vanco x 4 weeks. BP control , d/c Lisinopril d/t nausea started Diovan , BP improving 120-140s cont clonidine for now diabetic diet metformin bid /add glipizide HgbA1C 9.2 poorly controlled accu checks qac & qhs w SSI pepcid for GI prophylaxis continue to monitor D/W pt and D/W Dr. Carroll D/W RN This patient was seen by myself and Dr. Carroll, this note is written on his behalf. Rylie Mayo Mar 12, 2017 10:19
[2017-03-12] MEDS ORDERED: PHARMACY ORDERED LAB ONE (11:45)
[2017-03-12 12:00] VITALS: BP 128/82; PULSE 82; RESP 18; TEMP 98.4; O2SAT 97
[2017-03-12] MEDS: cloNIDine HCL 0.1 MG TAB PO SCH ×2 (14:15→21:50)
--- NOTE | 2017-03-12 15:13 | PD.ORT.PN ---
Subjective Subjective Remarks pt doing much improved with his right shoulder significant decrease in pain long discussion with patient and regarding future management, per infectious disease, patient will require at least four weeks of IV abx. Objective Vitals Vital Signs Date Time Temp Pulse Resp B/P Pulse Ox O2 Delivery O2 Flow Rate FiO2 03/12/17 12:00 98.4 82 18 128/82 97 03/12/17 11:40 18 03/12/17 08:00 98.8 82 17 144/75 96 03/12/17 00:00 98.5 80 18 121/72 96 03/11/17 20:00 98.5 82 18 116/70 95 03/11/17 16:00 98.4 81 18 120/80 96 I/O 03/11/17 03/11/17 03/11/17 03/12/17 03/12/17 03/12/17 07:00 15:00 23:00 07:00 15:00 23:00 Intake Total 500 ml 1480 ml 480 ml 980 ml Output Total 1000 ml Balance 500 ml 1480 ml 480 ml -20 ml Intake Oral 960 ml 480 ml 480 ml IV Total 500 ml 520 ml 500 ml Output Urine Total 1000 ml # Voids 4 2 # Bowel Movements 0 0 0 Result Diagram: 03/11/17 0428 03/11/17 0428 Objective Remarks Seen by Dr. Cholo Thorpe Patient is awake and alert dressings changed, wound healing well, no drainage Drain in place, will d/c today +NVI Assessment & Plan Assessment and Plan 1) POD #3 s/p right shoulder irrigation and debridement Cultures - MRSA IV vanc x 4 weeks per I.D. patient needs to be scheduled for PICC line today continue PT discontinue drain today anticipate discharge home tomorrow am Savanna Darling Mar 12, 2017 15:13
--- NOTE | 2017-03-12 15:19 | HHI.FF ---
Face to Face Verification Diagnosis: (1) Shoulder abscess Physical Therapy Additional Instructions IV abx- per infectious disease, IV vanc x 4 weeks Nursing RN Days per Week: 3 x Week(s): 4 Nursing: Dressing changes (clean with alcohol and apply dry sterile dressing ) Additional Instructions PT- passive range of motion in all planes for right shoulder I have seen patient Christopher Carlisle on 03/12/17. My clinical findings support the need for the requested home health care services because: Deconditioned w/ increased weakness I certify that my clinical findings support that this patient is homebound because: Post-op weakness Savanna Darling Mar 12, 2017 15:19
[2017-03-12 16:00] VITALS: BP 147/85; PULSE 82; RESP 18; TEMP 97.8; O2SAT 100
--- NOTE | 2017-03-12 16:00 | HHI.FF ---
Infusion Therapy Location of Infusion Therapy: Home Health Care IV Infusion Order Patient Information Patient Weight 111.5 kg Diagnosis: (1) Shoulder abscess Diagnosis MRSA. 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 [] May leave port accessed during therapy. [] May leave peripheral site accessed for duration of therapy. [x] If patient has SOB or respiratory distress, check oxygen saturation. If less than 90% or clinical signs of respiratory distress, administer oxygen at 2 L/min. via nasal cannula and notify physician. [x] Anaphylaxis/Reaction orders: * Stop infusion. * Keep IV line open with saline flush. * Notify physician. * Monitor vital signs every 15 minutes until symptoms resolve. * Check Oxygen saturation; Oxygen at 2 L/min. via nasal cannula if less than 90% or clinical signs of respiratory distress. * Administer diphenhydramine (Benadryl) 25 mg IV STAT, (unless patient has received as pre-med). May repeat once, if necessary. * Solu-Cortef 250 mg IVP over 30-60 seconds, use 100 mg vials for each dissolution. * Epinephrine (1mg/1 ml) 0.3 mg subcutaneously or IVP now with any signs of respiratory distress. * Check with physician for new additional pre-med orders if patient is re- challenged or re-treated. [x] May remove PICC line when treatment complete, after confirming with Physician. [x] If the patient is admitted to the hospital, the ED, or transferred via [facility] , complete transfer form including medication reconciliation order sheet. Laboratory Tests Weekly Labs: BMP, Vancomycin Trough Additional Information Follow up with Dr. Jerry. ID doctor in 1 week. Copy of labs to Dr. Jerry. Copy of labs to Dr. Haynes. [phone]. Garcia Haynes MD Mar 12, 2017 16:00
[2017-03-12] MEDS ORDERED: SOLU250I IV PUSH (16:03)
[2017-03-12] MEDS ORDERED: EPIN1INJ21 IV PUSH (16:03)
[2017-03-12] MEDS ORDERED: EPIN1INJ21 SQ (16:03)
[2017-03-12] MEDS ORDERED: VANC10IN IV (16:03)
--- NOTE | 2017-03-12 16:27 | HHI.IDPN ---
Note Infectious Disease Note Patient notes pain at the r. shoulder. Afebrile. Wound culture has MRSA. PAST MEDICAL HISTORY Hypertension. The patient newly diagnosed with diabetes. ALLERGIES NO KNOWN DRUG ALLERGIES. ANTIBIOTICS: Vancomycin. OBJECTIVE: Vital Signs Date Time Temp Pulse Resp B/P Pulse Ox O2 Delivery O2 Flow Rate FiO2 03/12/17 12:00 98.4 82 18 128/82 97 03/12/17 11:40 18 03/12/17 08:00 98.8 82 17 144/75 96 03/12/17 00:00 98.5 80 18 121/72 96 03/11/17 20:00 98.5 82 18 116/70 95 Laboratory Tests Test 03/11/17 04:28 White Blood Count 9.9 TH/MM3 Red Blood Count 4.45 MIL/MM3 Hemoglobin 13.1 GM/DL Hematocrit 37.3 % Mean Corpuscular Volume 83.8 FL Mean Corpuscular Hemoglobin 29.4 PG Mean Corpuscular Hemoglobin 35.1 % Concent Red Cell Distribution Width 12.4 % Platelet Count 220 TH/MM3 Mean Platelet Volume 8.2 FL Laboratory Tests Test 03/11/17 04:28 Sodium Level 134 MEQ/L Potassium Level 4.0 MEQ/L Chloride Level 98 MEQ/L Carbon Dioxide Level 24.8 MEQ/L Anion Gap 11 MEQ/L Blood Urea Nitrogen 20 MG/DL Creatinine 0.99 MG/DL Estimat Glomerular Filtration 79 ML/MIN Rate Random Glucose 194 MG/DL Calcium Level 8.5 MG/DL PHYSICAL EXAMINATION GENERAL: No acute distress. Awake and alert and oriented. HEENT: No icterus. Oropharynx no visible lesions. No thrush. NECK: Supple without adenopathy. LUNGS: Clear to auscultation. HEART: Regular rate and rhythm. No murmurs. No rubs. No gallops. ABDOMEN: Bowel sounds present, soft, nontender. EXTREMITIES: The right shoulder has swelling. Decreased range of motion at the r. shoulder. SKIN: No rash. NEUROLOGIC: No gross focal findings. PSYCHIATRIC: Calm and cooperative. IMPRESSION 1. Wound infection postop. MRSA. Patient status post drainage of abscess at the right shoulder. 2. Patient status post repair of right shoulder ruptured tendon, recent. RECOMMENDATIONS Continue vancomycin until April 08, 2017. Orders written on infusion form. Labs ordered. PIC line to be placed. Follow up for ID with Dr. Jerry in 1 week. Discussed with patient and . For discharge after PIC line is placed and antibiotics are arranged. Discussed with case management. Garcia Haynes MD Mar 12, 2017 16:27
[2017-03-12] MEDS: ONDANSETRON HCL 4 MG/2 ML VIAL IVP PRN (17:45)
[2017-03-12] MEDS ORDERED: SODIUM CHLORIDE 0.9% FLUSH 10 ML FLUSH IV FLUSH PRN (18:00)
--- NOTE | 2017-03-12 18:03 | RADRPT ---
EXAM DATE/TIME: 03/12/2017 17:46 [facility] COMPARISON: CHEST SINGLE AP, April 11, 2016, 15:11. INDICATIONS : Evaluate PICC line placement MEDICAL HISTORY : Hypertension. Diabetes mellitus type II. SURGICAL HISTORY : None. ENCOUNTER: Initial ACUITY: 1 day PAIN SCORE: 0/10 LOCATION: chest FINDINGS: No infiltrate. No pleural effusion or pneumothorax. Heart size stable, within normal limits. Thoracic aorta is tortuous. Left arm PICC present, tip in the right atrium. CONCLUSION: Left arm PICC with tip in the right atrium. No evidence of acute complication or acute cardiopulmonar y disease. Logan Marcus MD on March 12, 2017 at 18:01 Board Certified Radiologist. This report was verified electronically.
[2017-03-12 20:00] VITALS: BP 135/62; PULSE 69; RESP 19; TEMP 96.8; O2SAT 95
[2017-03-13] VITALS: BP 150/97; PULSE 88; RESP 20; TEMP 96.8; O2SAT 97
[2017-03-13] MEDS: VANCOMYCIN 1,500 MG/NS 500 ML IV SCH ×4 (01:00→12:37)
[2017-03-13] MEDS: ACETAMINOPHEN/HYDROcodone 325 MG/7.5 MG TAB PO PRN ×3 (03:56→12:36)
[2017-03-13] MEDS: MAGNESIUM HYDROXIDE SUSP 30 ML CUP PO PRN (04:15)
[2017-03-13] MEDS: cloNIDine HCL 0.1 MG TAB PO SCH (05:07)
[2017-03-13] MEDS: INSULIN ASPART SUPPLEMENTAL SCALE SQ SCH ×2 (06:05→11:32)
--- NOTE | 2017-03-13 07:32 | PD.ORT.PN ---
Subjective Subjective Remarks Patient comfortable No sob/chest pain Objective Vitals Vital Signs Date Time Temp Pulse Resp B/P Pulse Ox O2 Delivery O2 Flow Rate FiO2 03/13/17 00:00 150/97 03/13/17 00:00 96.8 88 20 97 03/12/17 20:00 96.8 69 19 135/62 95 03/12/17 16:00 97.8 82 18 147/85 100 03/12/17 15:51 18 03/12/17 12:00 98.4 82 18 128/82 97 03/12/17 08:00 98.8 82 17 144/75 96 I/O 03/12/17 03/12/17 03/12/17 03/13/17 03/13/17 03/13/17 07:00 15:00 23:00 07:00 15:00 23:00 Intake Total 980 ml 500 ml 240 ml 240 ml Output Total 1000 ml 400 ml Balance -20 ml 500 ml 240 ml -160 ml Intake Oral 480 ml 500 ml 240 ml 240 ml IV Total 500 ml 0 ml Output Urine Total 1000 ml 400 ml # Voids 3 1 # Bowel Movements 0 1 1 0 Result Diagram: 03/11/17 0428 03/11/17 0428 Objective Remarks Seen with Patient is awake and alert dressings changed, wound healing well, no drainage +NVI Assessment & Plan Assessment and Plan 1) POD #4 s/p right shoulder irrigation and debridement Cultures - MRSA IV vanc x 4 weeks per I.D. patient had PICC line yesterday continue PT anticipate discharge home today Medicine to manage medical Rxs Ortho stable Cholo Thorpe MD Mar 13, 2017 07:32
[2017-03-13 08:00] VITALS: BP 153/97; PULSE 83; RESP 18; TEMP 98.7; O2SAT 97
[2017-03-13] MEDS: glipiZIDE 5 MG TAB PO SCH (08:30)
[2017-03-13] MEDS: metFORMIN HCL 500 MG TAB PO SCH (08:32)
[2017-03-13] MEDS: DOCUSATE SODIUM 100 MG CAP PO SCH (08:32)
[2017-03-13] MEDS: SODIUM CHLORIDE 0.9% FLUSH 5 ML FLUSH IVF SCH (08:36)
[2017-03-13] MEDS ORDERED: SODIUM CHLORIDE 0.9% FLUSH 10 ML FLUSH IV FLUSH SCH (09:00)
[2017-03-13] MEDS ORDERED: VALSARTAN 40 MG TAB PO SCH (09:00)
[2017-03-13] MEDS ORDERED: METF500 PO (09:31)
[2017-03-13] MEDS ORDERED: GLIP5 PO (09:31)
[2017-03-13] MEDS ORDERED: DIOV40TA PO (09:31)
[2017-03-13] MEDS ORDERED: GLUCKIT15 (09:36)
--- NOTE | 2017-03-13 09:36 | HHI.PR ---
Subjective Subjective Remarks has been cleared for discharge by ortho no cp no sob felt sick this morning, better now BP improved at bsd, concerned about being able to afford meds for BP, diabetes Review of Systems Constitutional Constitutional Remarks 12 point ROS completed, negative except as noted above Vitals/Results Intake & Output 03/12/17 03/12/17 03/13/17 15:00 23:00 07:00 Intake Total 500 ml 240 ml 690 ml Output Total 400 ml Balance 500 ml 240 ml 290 ml Intake Oral 500 ml 240 ml 240 ml IV Total 0 ml 450 ml Output Urine Total 400 ml # Voids 3 1 # Bowel Movements 1 1 0 Vital Signs Vital Signs Date Time Temp Pulse Resp B/P Pulse Ox O2 Delivery O2 Flow Rate FiO2 03/13/17 08:00 98.7 83 18 153/97 97 03/13/17 00:00 150/97 03/13/17 00:00 96.8 88 20 97 03/12/17 20:00 96.8 69 19 135/62 95 03/12/17 16:00 97.8 82 18 147/85 100 03/12/17 15:51 18 03/12/17 12:00 98.4 82 18 128/82 97 CBC/BMP: 03/11/17 0428 03/13/17 0635 Lab Results Laboratory Tests Test 03/12/17 03/13/17 11:40 06:35 Vancomycin Level Trough 9.8 MCG/ML Creatinine 0.72 MG/DL Estimat Glomerular Filtration 114 ML/MIN Rate Physical Exam General General Appearance: Well Developed, No Acute Distress, Comfortable, Obese Eyes Eye Exam: Pupils Equal, Pupils Reactive, Sclera White, Extraocular Movement Intact Ears & Nose Ears & Nose Exam: Nasal Mucosa Ava Throat Throat Exam: Oral Mucosa Ava & Moist Neck Neck Exam: Neck Supple, Trachea Midline Pulmonary Resp Exam: Clear Bilaterally, No Distress Cardiology CV Exam: Regular, Normal Sinus Rhythm Gastrointestinal/Abdomen GI Exam: Soft, Non-Tender, Bowel Sounds Present, Non-Distended Musculoskeletal MS Remarks right shoulder dressing D/I Hemovac drain Integumentary Skin Exam: Warm, Dry Extremeties Extremities Exam: No Edema, Pedal Pulses Palpable Neurologic Neuro Exam: Alert, Awake, Oriented, Speech Clear, Moving All Extremities, No Focal Deficits Psychiatric Psych Exam: Appropriate Responses VTE Prophylaxis VTE Prophylaxis Device: SCDs PUD Prophylasis PUD Prophylaxis: Protonix Assessment/Plan Assessment/Plan ASSESSMENT . R shoulder surgical wound infection w abscess status post I&D of the right shoulder./MRSA . Recent right shoulder acromioplasty and resection of the acromioclavicular joint. . Diabetes type 2 uncontrolled recent diagnosis . Hypertension, uncontrolled. recent diagnosis . ETOH dependence . Hyponatremia, mild. , nausea . Obesity . PLAN Post op care per ortho analgesic PRN wound care, hemovac drain in place cultures + MRSA continue with IV Vanco , f/u vanco trough appreciate ID input-recommends to continue vancomycin. Continue IV Vanco x 4 weeks. Has PICC line BP control , d/c Lisinopril d/t nausea continue Diovan, controlling BP well cont clonidine for now diabetic diet metformin bid / glipizide HgbA1C 9.2 poorly controlled accu checks qac & qhs w SSI will have adaptive physical educator see before dc Rx given for glucose meter discussed keeping food journal, starting exercise program when able, getting weight down, portion control, potential complications of uncontrolled DM pepcid for GI prophylaxis continue to monitor Cleared for dc by ortho Abx recommendations per ID D/W CM, she will try to get meds for free, Rx in chart F/U PCP 1-2 weeks, keep log of blood glucose, check at least BID Diet-diabetic Activity-as tolerated, per ortho D/W pt and D/W Dr. Carroll D/W RN D/W CM This patient was seen by myself and Dr. Carroll, this note is written on his behalf. Rylie Mayo Mar 13, 2017 09:36
[2017-03-13 12:00] VITALS: BP 183/105; PULSE 88; RESP 19; TEMP 98.1; O2SAT 99
[2017-03-14] MEDS ORDERED: PHARMACY ORDERED LAB ONE (11:45)
--- NOTE | 2017-03-16 10:59 | HHI.DS ---
Discharge Summary Admission Date Mar 09, 2017 at 15:40 Discharge Date: Mar 13, 2017 Admitting Diagnosis Right shoulder infection Diagnosis: (1) Shoulder abscess Diagnosis: Principal Procedures Right shoulder incision and drainage of abscess, irrigation and debridement Brief History This is a 56 year old male patient who presents with the following history. Patient underwent right decompressive shoulder surgery on 02/08/17. He did well. Patient then began to have mild erythema surrounding his top stitch, was placed on oral Keflex antibiotic. Did well and finished antibiotic. Two days after completing the oral antibiotic (03/08/17), patient had increasing pain, drainage, chills, fever. He called the office and was advised to come in the following morning for an appointment. Culture was taken from his shoulder and he was admitted to the hospital for I&D and IV antibiotics. CBC/BMP: 03/13/17 0635 PE at Discharge Seen with Patient is awake and alert dressings changed, wound healing well, no drainage +NVI Hospital Course Patient was admitted to the hospital on 03/09/17 after being seen in the office that morning for a follow up visit. Culture was taken in the office and he was scheduled for surgery that afternoon. He underwent satisfactory anaesthesia by the dept of anaesthesia. Patient underwent right shoulder incision and drainage of abscess, irrigation and debridement. Culture did return MRSA. Infectious disease did advise IV vanc x 4 weeks and to follow up with Dr. Santos as outpatient on discharge. PICC line was placed to continue the IV antibiotics upon discharge. PT was consulted for range of motion of the shoulder. Patient progressed well and was discharged on pod # 4 in stable condition. Home health and therapy was set up for discharge. Pt Condition on Discharge: Stable Discharge Disposition: Disch w/ Home Health Serv Discharge Instructions Diet Instructions: Diabetic Diet Activities You Can Perform: Weight Bearing as Savanna Dunham Mar 16, 2017 10:59
== END 2017-03-13 15:24 | disposition home health service (06) | DRG 857 ==
LOC: NEPGCP 10:12 → N07B 14:07 → N07A 16:49 → OBSVTOIN 03-10 15:40
PROVIDERS: ADMIT Orthopaedic Surgery Orthopaedic Surgery of the Spine; ATTEND Orthopaedic Surgery Orthopaedic Surgery of the Spine
PROC: 0MB10ZZ Excision of Right Shoulder Bursa and Ligament, Open Approach (ICD-10-PCS; principal; 2017-03-09 13:47)
PROC: 02H633Z Insertion of Infusion Device into Right Atrium, Percutaneous Approach (ICD-10-PCS; 2017-03-12)
PROC: B244ZZZ Ultrasonography of Right Heart (ICD-10-PCS; 2017-03-12)
DX: T81.4XXA Infection following a procedure, initial encounter (principal); E87.1 Hypo-osmolality and hyponatremia; E11.65 Type 2 diabetes mellitus with hyperglycemia; I10 Essential (primary) hypertension; B95.62 Methicillin resistant Staphylococcus aureus infection as the cause of diseases classified elsewhere; Z79.84 Long term (current) use of oral hypoglycemic drugs; Z91.14 Patient's other noncompliance with medication regimen; Z87.891 Personal history of nicotine dependence; K21.9 Gastro-esophageal reflux disease without esophagitis; E66.9 Obesity, unspecified; Z68.35 Body mass index [BMI] 35.0-35.9, adult; F10.20 Alcohol dependence, uncomplicated
CPT/HCPCS: 36569; 71010; 76937; 80048; 80202; 81001; 82565; 82948; 83036; 85027; 86403; 87070; 87102; 87147; 87176; 87186; 87205; 87206; 93005; 94150; J0131; J0690; J1580; J1642; J1815; J2370; J2405; J2765; J3010; J3370; J7040; J7050; J7120

== ENCOUNTER 2017-09-16 12:18 | Emergency (ER) | payer SELFPAY ==
[~2017-09-16] VITALS: Ht 177.8 cm; Wt 111.5 kg
[~2017-09-16 12:18] MED LIST changes: -3-IN3MIS; +DIOV40TA PO; +EPIN1INJ21 IV PUSH; +EPIN1INJ21 SQ; +GLIP5 PO; +GLUCKIT15; +HYDR-3288 PO; -LISI20 PO; +MELO15TA20 PO; -NORC10TA2 PO; -PERI8.6T PO; -PRAV40TA2 PO; -RIVA10 PO; +SOLU250I IV PUSH; +VANC10IN IV; -VITA20003 PO; -Z.0.WALKERFRONT; -Z.0.WHEELELR
[2017-09-16 12:19] VITALS: BP 195/115; PULSE 94; RESP 18; TEMP 97.9; O2SAT 98
--- NOTE | 2017-09-16 14:08 | PD ---
HPI Chief Complaint: Back/ Neck Pain or Injury Time Seen by Provider: 13:55 Travel History International Travel<30 days: No Contact w/Intl Traveler<30days: No Traveled to known affect area: No History of Present Illness HPI 56-year-old male presents to the ED for evaluation of one week history of 7/10 lower back pain. Described as across the entire mid back, worsened by certain motions. Denies radiation of the pain. Patient can identify no acute injury. Denies previous injury to the back. Denies urinary/fecal incontinence, saddle anesthesia, numbness, tingling, weakness of the lower extremities. Denies limping. 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 He treated at home with massage, BenGay, Aleve with no improvement of symptoms. PFSH Past Medical History Arthritis: Yes (oa right shoulder) Diabetes: Yes Patient Takes Glucophage: Yes Diminished Hearing: No Gastrointestinal Disorders: Yes GERD: Yes Hypertension: No Musculoskeletal: No Neurologic: No Respiratory: No ?: Not Social History Alcohol Use: Yes (Ocasionally) Tobacco Use: No Substance Use: No Allergies-Medications (Allergen,Severity, Reaction): Coded Allergies: *MDRO Multi-Drug Resistant Organism (Verified Adverse Reaction, Unknown, ) MRSA (shoulder)-03/09/17 Reported Meds & Prescriptions Reported Meds & Active Scripts Active [place] (Hydrocodone-Acetaminophen) 5 Mg-325 Mg Tab 1 Tab PO Q6H PRN Ibuprofen 800 Mg Tab 800 Mg PO Q8H PRN Flexeril (Cyclobenzaprine HCl) 10 Mg Tab 10 Mg PO TID Glucocom Blood Glucose Mo W/Device (Device) 1 Kit Kit 1 Kit .ROUTE DIRECTED Glucotrol (Glipizide) 5 Mg Tab 5 Mg PO DAILYAC Glucophage (Metformin HCl) 500 Mg Tab 1,000 Mg PO BIDPC Diovan (Valsartan) 40 Mg Tab 80 Mg PO DAILY Epinephrine Inj 1 Mg/Ml Inj 0.3 Mg SQ ONCE PRN Give with any signs of respiratory distress. Epinephrine Inj 1 Mg/Ml Inj 0.3 Mg IV PUSH ONCE PRN Solu-Cortef Inj (Hydrocortisone Sodium Succinate) 250 Mg Inj 250 Mg IV PUSH ONCE PRN Give over 30-60 seconds. Vancomycin Inj (Vancomycin HCl) 10 Gm Inj 1,750 Mg IV BID 30 Days Reported Meloxicam 15 Mg Tab 15 Mg PO DAILY [place] (Hydrocodone-Acetaminophen) 7.5-325 mg Tab 1 Tab PO Q6H PRN Review of Systems Except as stated in HPI: all other systems reviewed are Neg Physical Exam Narrative GENERAL: Well-nourished, well-developed male in no acute distress. SKIN: Focused skin assessment warm/dry. HEAD: Normocephalic. EYES: No scleral icterus. No injection or drainage. NECK: Supple, trachea midline. No JVD or lymphadenopathy. CARDIOVASCULAR: Regular rate and rhythm without murmurs, gallops, or rubs. RESPIRATORY: Breath sounds equal bilaterally. No accessory muscle use. GASTROINTESTINAL: Abdomen soft, non-tender, nondistended. MUSCULOSKELETAL: No cyanosis, or edema. 5/5 strength of plantarflexion, dorsiflexion, knee and hip flexion bilaterally. BACK: No obvious deformity. No CVA tenderness. No midline tenderness to palpation. Tender to palpation of the paraspinal musculature in the mid lumbar area bilaterally. Data Data Last Documented VS Vital Signs Date Time Temp Pulse Resp B/P (MAP) Pulse Ox O2 Delivery O2 Flow Rate FiO2 09/16/17 14:52 09/16/17 12:19 97.9 94 18 98 Orders Orders Ketorolac Inj (Toradol Inj) (09/16/17 14:15) Orphenadrine Inj (Norflex Inj) (09/16/17 14:15) Ed Discharge Order (09/16/17 14:29) [facility] Medical Decision Making Medical Screen Exam Complete: Yes Emergency Medical Condition: Yes Differential Diagnosis Low back strain with muscle spasm versus acute on chronic back pain versus other Narrative Course 56-year-old male presents to the ED for evaluation of one week history of 7/10 lower back pain. Described as across the entire mid back, worsened by certain motions. Without radiation. No red flag symptoms. No known injury. Vitals reviewed. On exam the patient has paraspinal muscular tenderness. No midline tenderness. No focal neuro deficit. No weakness in the lower extremities. He was administered IM Toradol and Norflex. He is provided prescriptions for a few doses of [place], and her milligram ibuprofen and Flexeril. He is instructed to take medications as prescribed, return to normal, dental activities as tolerated, follow up with a primary care provider. We discussed reasons to return to the ED. The patient indicated understanding of the discharge instructions and is agreeable to the care plan. The patient is stable and discharged home. Diagnosis Primary Impression: Muscle spasm Additional Impression: Low back strain Qualified Codes: S39.012A - Strain of muscle, fascia and tendon of lower back , initial encounter Referrals: Primary Care Physician Patient Instructions: General Instructions, Low Back Strain (ED) Additional Instructions: Rest, hydrate. A mixture of rest and activity as best for back pain. Warm compresses applied to areas of pain ten- 15 minutes 2 times a day may help to improve your symptoms. Take muscle relaxants and anti-inflammatories as prescribed. Do not drive while taking muscle relaxants him as they may cause drowsiness. Follow-up with her primary care provider. Return to the ED for any urgent or emergent medical condition. Med/Other Pt SpecificInfo: Prescription(s) given Scripts Hydrocodone-Acetaminophen (Kearsarge) 5 Mg-325 Mg Tab 1 TAB PO Q6H Y for PAIN, #12 TAB 0 Refills Prov: Matthew De Souza MD 09/16/17 Ibuprofen (Ibuprofen) 800 Mg Tab 800 MG PO Q8H Y for Pain/Inflammation, #15 TAB 0 Refills Prov: Matthew De Souza MD 09/16/17 Cyclobenzaprine (Flexeril) 10 Mg Tab 10 MG PO TID for Muscle Spasm, #15 TAB 0 Refills Prov: Matthew De Souza MD 09/16/17 Disposition: 01 DISCHARGE HOME Condition: Stable Nellie Damico Sep 16, 2017 14:08
[2017-09-16] MEDS ORDERED: KETOROLAC TROMETHAMINE 60 MG/2 ML (IM) VIAL IM ONE (14:15)
[2017-09-16] MEDS ORDERED: ORPHENADRINE INJ 60 MG/2 ML AMP IM ONE (14:15)
[2017-09-16] MEDS ORDERED: IBUP1TAB7 PO (14:31)
[2017-09-16] MEDS ORDERED: CYCL10TA PO (14:31)
[2017-09-16] MEDS ORDERED: NORC5TAB PO (14:31)
[2017-09-16 14:51] VITALS: BP 158/97
== END 2017-09-16 14:54 | disposition home or self-care (01) ==
LOC: NEPD 12:18
DX: S39.012A Strain of muscle, fascia and tendon of lower back, initial encounter (principal); M62.830 Muscle spasm of back; M19.011 Primary osteoarthritis, right shoulder; E11.9 Type 2 diabetes mellitus without complications; K21.9 Gastro-esophageal reflux disease without esophagitis; X50.1XXA Overexertion from prolonged static or awkward postures, initial encounter; Y99.0 Civilian activity done for income or pay; Z79.899 Other long term (current) drug therapy
CPT/HCPCS: 96372; 99284; J1885; J2360